=== PATIENT | female | born 1945 | race Caucasian/White ===

== ENCOUNTER 2016-05-18 12:53 | Outpatient (CLI) | payer MEDICARE | END 2016-05-18 12:54 | disposition home or self-care (01) | DX: M81.0 Age-related osteoporosis without current pathological fracture (principal); Z78.0 Asymptomatic menopausal state ==

== ENCOUNTER 2016-05-18 12:54 | Outpatient (CLI) | payer MEDICARE | END 2016-05-18 12:55 | disposition home or self-care (01) | DX: Z12.31 Encounter for screening mammogram for malignant neoplasm of breast (principal) ==

== ENCOUNTER 2017-02-28 09:31 | Outpatient (CLI) | payer MEDICARE ==
--- NOTE | 2017-03-01 10:06 | XRAY Report ---
DATE OF SERVICE: 02/28/2017 RIGHT SHOULDER: 02/28/2017 COMPARISON: None. INDICATION: Right shoulder pain. Injury two weeks ago, jerking injury. TECHNIQUE: Three views of the shoulder. FINDINGS: Normal alignment. No evidence of acute fracture. There are minimal degenerative changes of the acromioclavicular joint. IMPRESSION: MINIMAL AC JOINT ARTHROSIS. TD: 03/01/2017 10:43 [facility]
== END 2017-02-28 09:32 | disposition home or self-care (01) ==
LOC: DI 09:31
PROVIDERS: ATTEND Nurse Practitioner Family
DX: M19.011 Primary osteoarthritis, right shoulder (principal)

== ENCOUNTER 2019-11-19 22:06 | Emergency (ER) | payer MEDICARE ==
--- NOTE | 2019-11-19 22:09 | ED Physician Documentation ---
History of Present Illness - Stated complaint Stated Complaint: RAPID HR - History obtained from History obtained from: Patient - Additonal information Additional information: Patient is a 74-year-old female presents with her with a chief complaint of palpitations. She reports she has a known history of atrial fibrillation for the last 11 years. She does not take any medication for this. Tonight she was drinking alcohol and using a marijuana at a bowel and later on she is felt like her heart was racing and skipping beats denies syncope or chest pain.She does have a primary care provider. She does not take any medications other than alcohol and marijuana. Reports that she has been eating more bananas daily. patient also states that she has severe stress and anxiety. patient reports that she does not wish to take any prescription medications. Review of Systems Constitutional: reports: Reviewed and negative Eyes: reports: Reviewed and negative Ears: reports: Reviewed and negative Nose: reports: Reviewed and negative Throat: reports: Reviewed and negative Cardiac: reports: Palpitations Respiratory: reports: Reviewed and negative GI: reports: Reviewed and negative : reports: Reviewed and negative Skin: reports: Reviewed and negative Musculoskeletal: reports: Reviewed and negative Neurologic: reports: Reviewed and negative Psychiatric: reports: Reviewed and negative Endocrine: reports: Reviewed and negative Immunocompromised: reports: Reviewed and negative PD PAST MEDICAL HISTORY - Present Medications Home Medications: Ambulatory Orders Medication Instructions Recorded Confirmed No Known Home Medications 11/19/19 11/19/19 - Allergies Allergies/Adverse Reactions: Allergies Allergy/AdvReac Type Severity Reaction Status Date / Time No Known Drug Allergies Allergy Verified 11/19/19 22:23 PD ED PE NORMAL - Vitals Vital signs reviewed: Yes - General General: Alert and oriented X 3, No acute distress, Well developed/nourished, Other (anxious) - HEENT HEENT: Atraumatic, PERRL - Neck Neck: Supple, no meningeal sign, No bony TTP, No adenopathy, Thyroid normal, No JVD - Cardiac Cardiac: No murmur, Strong equal pulses, Other (Tachycardic and regular rhythm) - Respiratory Respiratory: Clear bilaterally - Abdomen Abdomen: Normal bowel sounds, Soft, Non tender, Non distended, No organomegaly, Other (No midline abdominal pulsatile mass) - Back Back: No CVA TTP, No spinal TTP - Derm Derm: Normal color, Warm and dry, No rash - Extremities Extremities: No deformity, No tenderness to palpate, Normal ROM s pain, No edema, No calf tenderness / cord - Neuro Neuro: Alert and oriented X 3, cocktail server 2-12 intact, No motor deficit, No sensory deficit, Normal speech - Psych Psych: Normal mood, Normal affect Results - Vitals Vitals: Vital Signs - 24 hr 11/19/19 11/19/19 11/19/19 22:15 22:39 23:26 Temperature 37.1 C Heart Rate 124 H 95 94 Respiratory 20 18 16 Rate Blood Pressure 173/84 H 111/57 L 142/77 H O2 Saturation 99 99 98 Oxygen O2 Source Room air - EKG (time done) 22:10 Rate: Other (no stemi. no prior ekg for comparison. RBB. inverted t waves.) 22:40 Rate: Other (no stemi. sinus rhythm. RBB. inverted t waves. compared to initial EKG. ) - Labs Labs: Laboratory Tests 11/19/19 11/19/19 11/19/19 22:20 22:20 22:20 WBC 6.5 RBC 4.53 Hgb 14.2 Hct 44.3 MCV 97.8 MCH 31.3 H MCHC 32.1 RDW 12.5 Plt Count 244 MPV 9.1 Neut # (Auto) 2.9 Lymph # (Auto) 2.8 [place] # (Auto) 0.6 Eos # (Auto) 0.1 Baso # (Auto) 0.0 Absolute Nucleated RBC 0.00 Nucleated RBC % 0.0 PT 11.4 INR 1.0 APTT 30.9 Sodium 137 Potassium 5.6 H Chloride 97 L Carbon Dioxide 27 Anion Gap 13.0 BUN 18 Creatinine 0.9 Estimated GFR (MDRD) 61 L Glucose 129 H Calcium 10.0 Total Bilirubin 0.7 AST 26 ALT 20 Alkaline Phosphatase 75 Total Creatine Kinase 68 Troponin I High Sens B-Natriuretic Peptide Total Protein 7.6 Albumin 4.7 Globulin 2.9 Albumin/Globulin Ratio 1.6 Lipase 27 TSH 11/19/19 11/19/19 11/19/19 22:20 22:20 22:20 WBC RBC Hgb Hct MCV MCH MCHC RDW Plt Count MPV Neut # (Auto) Lymph # (Auto) [place] # (Auto) Eos # (Auto) Baso # (Auto) Absolute Nucleated RBC Nucleated RBC % PT INR APTT Sodium Potassium Chloride Carbon Dioxide Anion Gap BUN Creatinine Estimated GFR (MDRD) Glucose Calcium Total Bilirubin AST ALT Alkaline Phosphatase Total Creatine Kinase Troponin I High Sens 4.6 B-Natriuretic Peptide 39 Total Protein Albumin Globulin Albumin/Globulin Ratio Lipase TSH 8.55 H 11/19/19 23:30 WBC RBC Hgb Hct MCV MCH MCHC RDW Plt Count MPV Neut # (Auto) Lymph # (Auto) [place] # (Auto) Eos # (Auto) Baso # (Auto) Absolute Nucleated RBC Nucleated RBC % PT INR APTT Sodium Potassium 3.8 Chloride Carbon Dioxide Anion Gap BUN Creatinine Estimated GFR (MDRD) Glucose Calcium Total Bilirubin AST ALT Alkaline Phosphatase Total Creatine Kinase Troponin I High Sens B-Natriuretic Peptide Total Protein Albumin Globulin Albumin/Globulin Ratio Lipase TSH PD MEDICAL DECISION MAKING - ED course Complexity details: reviewed old records, reviewed results, re-evaluated patient, considered differential, d/w patient, d/w family ED course: 74 y/o f w known hx of atrial fibrillation. sounds like paroxysmal a fib. sees a pcp annually. occasionally takes aspirin. patient complaining of severe stress and anxiety. Initial EKG shows sinus tachycardia with diffuse inverted T waves as well as right bundle branch block chest x-ray is unremarkable troponins negative initial potassium is elevated at 5.6 patient will be treated with IV fluids and will recheck a potassium level she does have a mid to eating 1-2 bananas daily.There is no previous lab values to compare to. There is no prior EKGs for comparison as well. She did state that she had a mild lower extremity deep vein thrombosis approximately 45 years ago and subsequently developed a DVT. Repeat potassium level is normal. TSH is elevated, I discussed these results with the patient and recommend to f/u w her pcp tomorrow for recheck. Also had a lengthy discussion regards to her paroxysmal atrial fibrillation and did recommend a rate control drug such as Lopressor however the patient does not wish to take any prescription medications. Also did have a discussion regarding anticoagulation and she does not wish to be prescribed any novel oral anticoagulants we did have discussion regarding aspirin and she will follow-up with her primary care provider tomorrow to discuss initiating treatment with aspirin. I did recommend to get a CTA of the chest to rule out pulmonary emboli sm however she is refusing she does have medical decision-making capability and capacity and assumes any risks to include cardiac arrest. Patient does not want any further testing and would like to discharge home currently she is in normal sinus rhythm her heart rates in the 90s. Departure - Departure Disposition: 01 Home, Self Care Clinical Impression: Paroxysmal atrial fibrillation, Elevated TSH Condition: Stable Instructions: ED Afib Follow-Up: Deana Bingham PA [Primary Care Provider] - Tomorrow Comments: please follow up with your primary care provider tomorrow to discuss future sabine tment plans.
[2019-11-19] MEDS ORDERED: SODIUM CHLORIDE 0.9% 1,000 ML IV STA (22:23)
[2019-11-19] MEDS: LORazepam 2 MG/ML VIAL IVP STA ×3 (22:28→22:57)
[2019-11-19 22:29] LABS: BASOPHILS % (AUTO) 0.6 %; EOSINOPHILS # (AUTO) 0.1 10^3/uL (0.0-0.7); HGB - HEMOGLOBIN 14.2 g/dL (12.0-16.0); LYMPHOCYTES # (AUTO) 2.8 10^3/uL (1.5-3.5); LYMPHOCYTES % (AUTO) 42.9 %; MEAN CORPUSCULAR HEMOGLOBIN 31.3 pg (27.0-31.0); MEAN CORPUSCULAR HGB CONC 32.1 g/dL (32.0-36.0); MEAN CORPUSCULAR VOLUME 97.8 fL (81.0-99.0); MEAN PLATELET VOLUME 9.1 fL (7.9-10.8); MONOCYTES # (AUTO) 0.6 10^3/uL (0.0-1.0); MONOCYTES % (AUTO) 9.6 %; NEUTROPHILS # (AUTO) 2.9 10^3/uL (1.5-6.6); NEUTROPHILS % (AUTO) 44.6 %; PLT - PLATELET COUNT 244 10^3/uL (130-450); RED BLOOD COUNT 4.53 10^6/uL (4.20-5.40); RED CELL DISTRIBUTION WIDTH 12.5 % (12.0-15.0); WHITE BLOOD COUNT 6.5 x10^3/uL (4.8-10.8)
[2019-11-19 22:39] LABS: ALBUMIN 4.7 g/dL (3.2-5.5); ALBUMIN/GLOBULIN RATIO 1.6 (1.0-2.2); BILIRUBIN,TOTAL 0.7 mg/dL (0.2-1.0); CREATININE 0.9 mg/dL (0.4-1.0); PT - PROTHROMBIN TIME 11.4 secs (9.9-12.6); TOTAL PROTEIN 7.6 g/dL (6.7-8.2)
[2019-11-19 22:46] LABS: PARTIAL THROMBOPLASTIN TIME 30.9 secs (24.9-33.3)
[2019-11-20 00:01] VITALS: BP 133/78
--- NOTE | 2019-11-20 07:49 | XRAY Report ---
PROCEDURE: Chest 1 View X-Ray INDICATIONS: sob TECHNIQUE: One view of the chest was acquired. COMPARISON: None FINDINGS: Surgical changes and devices: None. Lungs and pleura: No pleural effusions or pneumothorax. Lungs are clear. Mediastinum: Mediastinal contours appear normal. Heart size is normal. Bones and chest wall: No suspicious bony lesions. Overlying soft tissues appear unremarkable. IMPRESSION: No acute cardiopulmonary disease process. Reviewed by: Bailey Garcia MD, PhD on 11/20/2019 7:48 AM PDT Approved by: Bailey Garcia MD, PhD on 11/20/2019 7:48 AM PDT Station ID: [id number]
== END 2019-11-20 00:01 | disposition home or self-care (01) ==
LOC: ED 22:06
DX: I48.0 Paroxysmal atrial fibrillation (principal); I45.10 Unspecified right bundle-branch block; R79.89 Other specified abnormal findings of blood chemistry; F43.9 Reaction to severe stress, unspecified; F41.9 Anxiety disorder, unspecified; Z86.718 Personal history of other venous thrombosis and embolism
CPT/HCPCS: 36415; 71045; 80053; 82550; 83690; 83880; 84132; 84443; 84484; 85025; 85610; 85730; 93005; 96361; 96374; 99284; J2060